=== PATIENT | female | born 1980 | race Two or more races ===

== ENCOUNTER 2017-03-05 18:12 | Emergency (ER) | payer MEDICAID ==
[~2017-03-05] VITALS: Ht 160 cm; Wt 79.4 kg
[2017-03-05 18:22] VITALS: BP 130/89
--- NOTE | 2017-03-05 19:07 | Emergency Room Report ---
History of Present Illness General Chief Complaint: Earache Source: Patient Present Illness HPI 36-year-old female presents to the emergency department complaining of 10 out of 10 in severity right ear pain with discharge x3 days. Patient states she's been taking Augmentin and Florence which was previously prescribed to her by the urgent care without relief since Friday. Patient denies fevers or chills. Patient reports increased tenderness to the outer ear. Patient denies trauma or Q-tip use. Denies hx of immune-compromise or DM. Denies CP, Palpitations, LOC, AMS, dizziness, Changes in Vision, Sensation, paresthesias, or a sudden severe headache. Allergies: Coded Allergies: No Known Allergies (Unverified , 03/05/17) Patient History Past Medical History: see triage record Past Surgical History: none Pertinent Family History: none Last Menstrual Period: 6 months--bc implant Now: No Immunizations: UTD Reviewed Nursing Documentation: PMH: Agreed, PSxH: Agreed Nursing Documentation-PMH Past Medical History: No Stated History Review of Systems All Other Systems: negative except mentioned in HPI Physical Exam Vital Signs Date Time Temp Pulse Resp B/P Pulse Ox O2 Delivery O2 Flow Rate FiO2 03/05/17 18:16 98.1 64 18 130/89 98 Room Air Sp02 EP Interpretation: reviewed, normal General Appearance: no apparent distress, alert, GCS 15, non-toxic Head: normocephalic, atraumatic Eyes: bilateral eye PERRL, bilateral eye normal inspection ENT: hearing grossly normal, normal pharynx, no angioedema, normal voice, uvula midline, moist mucus membranes, other - Right tragal tenderness, there is erythema with purulent d/c and sweling noted to the right ear canal, the TM is visualized, non ruptured. Neck: full range of motion, supple/symm/no masses Respiratory: normal inspection, lungs clear, normal breath sounds, speaking full sentences Cardiovascular #1: regular rate, rhythm, no edema Rectal: deferred Musculoskeletal: back normal, gait/station normal, normal range of motion, non- tender Neurologic: alert, oriented x3, responsive, motor strength/tone normal, sensory intact, cerebellar normal, normal gait, speech normal Psychiatric: judgement/insight normal, memory normal, mood/affect normal Skin: normal color, no rash, warm/dry, well hydrated Lymphatic: no adenopathy Medical Decision Making PA Attestation Dr. Anguiano is my supervising Physician whom patient management has been discussed with. Diagnostic Impression: Primary Impression: Otitis externa of right ear Qualified Codes: H60.501 - Unspecified acute noninfective otitis externa, right ear ER Course Pt. presents to the ED c/o right ear pain x 3 day(s) Ddx considered but are not limited to OM, OE, mastoiditis, TM perforation, FB Vital signs: are WNL, pt. is afebrile H&PE are most consistent with otitis externa ORDERS: none required at this time, the diagnosis is clinical -OTOSCOPY: tragal tenderness, swelling, ED INTERVENTIONS: None required at this time. DISCHARGE: At this time pt. is stable for d/c to home. Will provide printed patient care instructions, and any necessary prescriptions. Care plan and follow up instructions have been discussed with the patient prior to discharge. Last Vital Signs Date Time Temp Pulse Resp B/P Pulse Ox O2 Delivery O2 Flow Rate FiO2 03/05/17 18:22 98.1 18 130/89 98 Room Air 03/05/17 18:16 64 Disposition: HOME, SELF-CARE Condition: Stable Scripts Ciprofloxacin/Hydrocortisone (CIPRO HC OTIC SUSPENSION) 10 Ml Drops.susp 5 ML OT TID for 7 Days, #10 ML Prov: Dayami Del Valle 03/05/17 Referrals: NOT CHOSEN IPA/MD,REFERRING (PCP) Departure Forms: Return to Work Return to Work Date: Mar 08, 2017 Work Restrictions: None Return to Full Activity: Mar 08, 2017 Patient Instructions: Otitis Externa, [id number] Additional Instructions: Take medications as directed. Follow up with a Primary Care Provider in 3-5 days, even if your symptoms have resolved. --Please review list of primary care clinics, if you do not already have a primary care provider Return sooner to ED if new symptoms occur, or current symptoms become worse. - Please note that this Emergency Department Report was dictated using [employer] improvement specialist technology software, occasionally this can lead to erroneous entry secondary to interpretation by the dictation equipment. Dayami Del Valle Mar 05, 2017 19:07
[2017-03-05] MEDS ORDERED: CIPRO HC OTIC S10 M1 OT (19:09)
[2017-03-05 19:16] VITALS: BP 130/89
== END 2017-03-05 19:17 | disposition home or self-care (01) ==
LOC: EMR 18:45
DX: H60.91 Unspecified otitis externa, right ear (principal)
CPT/HCPCS: 99283